=== PATIENT | female | born 1990 | race Caucasian/White ===

== ENCOUNTER → 2017-04-15 | Outpatient (CLI) | payer OTHER ==
[~2017-04-15] MED LIST: ACYC800 PO; ALBU90OI INH; ALBU90OI61 INH; ASPI81EC PO; AZIT250 PO; BUPR150ER PO; BUPRENORPHIN-N1 EACH SL; BUPRENORPHINE HC2 MG SL; BUSP10 PO; Bactrim Ds Tab1 EACH PO; CALPHO600 PO; CLON.1 PO; CYCL10 PO; Cleocin HCl300 MG PO; DIPH50 PO; DOXY100 PO; Esgic Tablet1 EACH PO; FLUO10 PO; GABA300 PO; GUAI600T33 PO; HYDACE5 PO; HYDHCL25 PO; HYDPAM50 PO; IBUP600 PO; IBUP800 PO; Inderal40 MG PO; KETO10 PO; METPRE4DP PO; MULVITMINE PO; NAPR500 PO; NICO21TP; NITR100CA PO; Naprosyn500 MG PO; ONDA4ODT MM; OXYACE5T PO; PHENA200 PO; PROM25 PO; Percocet 5-3251 EACH PO; QUET200 PO; QUET25 PO; RXPROM25 PO; RXSULTRIDS PO; SULTRIDS PO; Seroquel50 MG PO; Verotin-Gr Cap1 EACH; Zithromax250 MG PO; buspar
[2017-04-15 19:02] LABS: U Amphetamine Screen DETECTED; U Barbituate Screen Not Detected; U Benzodiazapine Screen Not Detected; U Buprenorphine Screen DETECTED; U Cannabinoids Screen Not Detected; U Cocaine Screen Not Detected; U Methadone Screen Not Detected; U Methamphetamine Screen DETECTED; U Opiates Screen Not Detected; U Oxycodone Screen Not Detected; U Phencyclidine Screen Not Detected; U Propoxyphene Screen Not Detected
[2017-04-17 14:26] LABS: MDA Not Detected (NOTDET); MDEA Not Detected (NOTDET); MDMA Not Detected (NOTDET)
[2017-04-17 16:26] LABS: Norbuprenorphine GCMS 417 ng/mL (NOTDET)
== END | disposition home or self-care (01) ==
LOC: LAB 12:29
PROVIDERS: Obstetrics & Gynecology
DX: O99.320 Drug use complicating pregnancy, unspecified trimester (principal); F11.10 Opioid abuse, uncomplicated
CPT/HCPCS: G0480

== ENCOUNTER → 2017-04-25 | Outpatient (CLI) | payer OTHER ==
[2017-04-25 13:25] LABS: U Amphetamine Screen DETECTED; U Barbituate Screen Not Detected; U Benzodiazapine Screen Not Detected; U Buprenorphine Screen DETECTED; U Cannabinoids Screen Not Detected; U Cocaine Screen Not Detected; U Methadone Screen Not Detected; U Methamphetamine Screen DETECTED; U Opiates Screen Not Detected; U Oxycodone Screen Not Detected; U Phencyclidine Screen Not Detected; U Propoxyphene Screen Not Detected
[2017-04-26 22:30] LABS: Norbuprenorphine GCMS >500 ng/mL (NOTDET)
[2017-04-27 12:34] LABS: MDA Not Detected (NOTDET); MDEA Not Detected (NOTDET); MDMA Not Detected (NOTDET)
== END | disposition home or self-care (01) ==
LOC: LAB 11:14
PROVIDERS: Obstetrics & Gynecology
DX: O99.320 Drug use complicating pregnancy, unspecified trimester (principal); F11.10 Opioid abuse, uncomplicated
CPT/HCPCS: G0480

== ENCOUNTER → 2017-08-07 | Outpatient (CLI) | payer OTHER ==
[~2017-08-07] MED LIST changes: -BUPRENORPHIN-N1 EACH SL; -Verotin-Gr Cap1 EACH
[2017-08-07 20:48] LABS: Candida species (DNA Probe) Negative (NEGATIVE); G. vaginalis (DNA Probe) Negative (NEGATIVE); T. vaginalis (DNA Probe) Negative (NEGATIVE)
== END | disposition home or self-care (01) ==
LOC: LAB 15:58 → LAB SHORT 15:58
PROVIDERS: Obstetrics & Gynecology
DX: N89.8 Other specified noninflammatory disorders of vagina (principal)
CPT/HCPCS: 87480; 87510; 87660

== ENCOUNTER → 2017-09-25 | Outpatient (CLI) | payer OTHER ==
[2017-09-26 09:15] LABS: Candida species (DNA Probe) Positive (NEGATIVE); G. vaginalis (DNA Probe) Positive (NEGATIVE); T. vaginalis (DNA Probe) Negative (NEGATIVE)
== END | disposition home or self-care (01) ==
LOC: LAB 16:50 → LAB SHORT 16:50
PROVIDERS: Obstetrics & Gynecology
DX: O23.599 Infection of other part of genital tract in pregnancy, unspecified trimester (principal)
CPT/HCPCS: 87081; 87480; 87510; 87653; 87660

== ENCOUNTER 2017-10-11 22:49 | Inpatient (IN) | payer OTHER ==
[~2017-10-11] VITALS: Ht 180.3 cm; Wt 72.6 kg
[2017-10-12] MEDS ORDERED: Verotin-Gr Cap1 EACH (01:18)
[2017-10-12] MEDS ORDERED: BUPRENORPHIN-N1 EACH SL (01:19)
[2017-10-12 07:14] LABS: BASOPHILS ABSOLUTE AUTO 0.03 K/mm3 (0.00-0.23); BASOPHILS PERCENT AUTO 0 % (0-2); EOSINOPHILS ABSOLUTE AUTO 0.04 K/mm3 (0.00-0.68); EOSINOPHILS PERCENT AUTO 0 % (0-6); Hematocrit 31.3 % (33.0-51.0); Hemoglobin 10.6 g/dL (11.5-16.0); IMMATURE GRAN ABSOLUTE AUTO 0.12 K/mm3 (0.00-0.10); IMMATURE GRAN PERCENT AUTO 1 % (0-1); LYMPHOCYTES ABSOLUTE AUTO 2.85 K/mm3 (0.84-5.20); LYMPHOCYTES PERCENT AUTO 17 % (21-46); MONOCYTES ABSOLUTE AUTO 0.99 K/mm3 (0.16-1.47); MONOCYTES PERCENT AUTO 6 % (4-13); Mean Corpuscular HGB 31.2 pg (26.0-34.0); Mean Corpuscular HGB Conc 33.9 g/dL (31.5-36.5); Mean Corpuscular Volume 92 fL (80-100); Mean Platelet Volume 11.5 fL (9.1-12.4); NEUTROPHILS ABSOLUTE AUTO 12.88 K/mm3 (1.96-9.15); NEUTROPHILS PERCENT AUTO 76 % (41-73); Platelet Count 127 K/mm3 (150-400); RDW Coefficient Variation 12.9 % (11.7-14.2); RDW Standard Deviation 43.3 fL (35.1-46.3); White Blood Cell Count 16.91 K/mm3 (4.00-11.30)
[2017-10-13 05:40] LABS: BASOPHILS ABSOLUTE AUTO 0.03 K/mm3 (0.00-0.23); BASOPHILS PERCENT AUTO 0 % (0-2); EOSINOPHILS ABSOLUTE AUTO 0.12 K/mm3 (0.00-0.68); EOSINOPHILS PERCENT AUTO 1 % (0-6); Hematocrit 29.6 % (33.0-51.0); Hemoglobin 10.3 g/dL (11.5-16.0); IMMATURE GRAN ABSOLUTE AUTO 0.08 K/mm3 (0.00-0.10); IMMATURE GRAN PERCENT AUTO 1 % (0-1); LYMPHOCYTES ABSOLUTE AUTO 3.49 K/mm3 (0.84-5.20); LYMPHOCYTES PERCENT AUTO 30 % (21-46); MONOCYTES ABSOLUTE AUTO 0.68 K/mm3 (0.16-1.47); MONOCYTES PERCENT AUTO 6 % (4-13); Mean Corpuscular HGB 32.1 pg (26.0-34.0); Mean Corpuscular HGB Conc 34.8 g/dL (31.5-36.5); Mean Corpuscular Volume 92 fL (80-100); Mean Platelet Volume 10.7 fL (9.1-12.4); NEUTROPHILS ABSOLUTE AUTO 7.39 K/mm3 (1.96-9.15); NEUTROPHILS PERCENT AUTO 63 % (41-73); Platelet Count 147 K/mm3 (150-400); RDW Coefficient Variation 13.2 % (11.7-14.2); Red Blood Cell Count 3.21 M/mm3 (3.80-5.20); White Blood Cell Count 11.79 K/mm3 (4.00-11.30)
[2017-10-13 05:59] LABS: Alanine Aminotransfer (ALT/SGP 45 U/L (12-78); Albumin, Blood 2.3 g/dL (3.4-5.0); Albumin/Globulin Ratio 0.7 (0.8-1.8); Alk Phos 108 U/L (50-136); Anion Gap 7 mmol/L (6-16); Aspartate Aminotrans (AST/SGOT 35 U/L (12-37); Bilirubin, Total 0.2 mg/dL (0.1-1.0); Blood Urea Nitrogen 13 mg/dL (8-24); Bun/Creatinine Ratio 19.8 (12.0-20.0); CO2, Blood 23 mmol/L (21-32); Chloride, Blood 112 mmol/L (98-108); Creatinine, Blood 0.66 mg/dL (0.40-1.00); Globulin, Blood 3.5 g/dL (2.2-4.0); Glomerular Filtration Rate >60 (60-); Glucose, Blood 75 mg/dL (70-99); Potassium, Blood 4.6 mmol/L (3.5-5.5); Sodium, Blood 142 mmol/L (136-145); Total Protein, Blood 5.8 g/dL (6.4-8.2)
== END 2017-10-13 21:45 | disposition home or self-care (01) | DRG 774 ==
LOC: BC 22:49
PROVIDERS: Obstetrics & Gynecology
PROC: 10E0XZZ Delivery of Products of Conception, External Approach (ICD-10-PCS; principal; 2017-10-11)
DX: O62.3 Precipitate labor (principal); O98.42 Viral hepatitis complicating childbirth; O99.324 Drug use complicating childbirth; F15.20 Other stimulant dependence, uncomplicated; Z3A.40 40 weeks gestation of pregnancy; Z37.0 Single live birth; B19.20 Unspecified viral hepatitis C without hepatic coma
CPT/HCPCS: 36415; 59414; 80053; 85025; J1885

== ENCOUNTER → 2018-03-25 | Outpatient (CLI) | payer OTHER ==
[~2018-03-25] MED LIST changes: +BUPRENORPHIN-N1 EACH SL; +Verotin-Gr Cap1 EACH
== END ==
LOC: LAB 14:16 → LAB SRC 14:16 → LAB SHORT 14:16
DX: Z51.81 Encounter for therapeutic drug level monitoring (principal); F11.221 Opioid dependence with intoxication delirium; Z79.899 Other long term (current) drug therapy
CPT/HCPCS: G0480

== ENCOUNTER → 2018-12-05 | Outpatient (CLI) | payer OTHER ==
[2018-12-08 14:06] LABS: CHLAMYDIA TRACHOMATIS, NAA Negative (Negative); NEISSERIA GONORRHOEAE, NAA Negative (Negative)
== END | disposition home or self-care (01) ==
LOC: LAB EV 18:56 → LAB SHORT 18:56
PROVIDERS: Internal Medicine
DX: Z72.51 High risk heterosexual behavior (principal)
CPT/HCPCS: 87491; 87591

== ENCOUNTER 2019-01-14 11:48 | Emergency (ER) | payer OTHER ==
[~2019-01-14] VITALS: Ht 180.3 cm; Wt 65.8 kg
== END 2019-01-14 15:05 | disposition left against medical advice (07) ==
LOC: ER 11:48
DX: Z53.21 Procedure and treatment not carried out due to patient leaving prior to being seen by health care provider (principal)

== ENCOUNTER → 2019-01-29 | Outpatient (CLI) | payer OTHER ==
[2019-01-30 14:38] LABS: Candida species (DNA Probe) Positive (NEGATIVE); G. vaginalis (DNA Probe) Negative (NEGATIVE); T. vaginalis (DNA Probe) Positive (NEGATIVE)
[2019-02-01 07:06] LABS: CHLAMYDIA TRACHOMATIS, NAA Negative (Negative); NEISSERIA GONORRHOEAE, NAA Positive (Negative)
== END ==
LOC: LAB 16:36 → LAB SHORT 16:36
PROVIDERS: Registered Nurse Community Health
DX: N89.8 Other specified noninflammatory disorders of vagina (principal); Z20.2 Contact with and (suspected) exposure to infections with a predominantly sexual mode of transmission
CPT/HCPCS: 87480; 87491; 87510; 87591; 87660

== ENCOUNTER 2019-04-11 17:36 | Emergency (ER) | payer OTHER ==
[~2019-04-11] VITALS: Ht 180.3 cm; Wt 65.8 kg
[2019-04-11 18:01] LABS: Source, Urine Clean Catch
[2019-04-11 18:09] LABS: Bilirubin, Urine Neg (Neg); Blood, Urine 4+ (Neg); Glucose Qualitative, Urine Neg (Neg); Ketones, Urine Neg (Neg); Leukocyte Esterase, Urine 2+ (Neg); Nitrite, Urine Neg (Neg); Protein, Urine 2+ (Neg); Specific Gravity, Urine 1.025 (1.003-1.022); Urobilinogen, Urine NORM (Normal)
[2019-04-11] MEDS ORDERED: METH10 PO (18:20)
[2019-04-11] MEDS ORDERED: QUET200 PO (18:20)
[2019-04-11] MEDS ORDERED: GABA100 PO (18:20)
[2019-04-11 18:29] LABS: Appearance, Urine Hazy (Clear); Bacteria Many /hpf; Color, Urine Yellow (P-Yellow); Mucus Light (0-Heavy); Squamous Epithelial Cells Mod /hpf (Few)
[2019-04-11] MEDS ORDERED: CEPH500 PO (18:42)
== END 2019-04-11 18:57 | disposition home or self-care (01) ==
LOC: ER 17:36
PROVIDERS: Physician Assistant
DX: N39.0 Urinary tract infection, site not specified (principal); L70.9 Acne, unspecified; L02.91 Cutaneous abscess, unspecified; Z88.0 Allergy status to penicillin; Z88.5 Allergy status to narcotic agent; Z91.040 Latex allergy status; Z91.013 Allergy to seafood; Z79.899 Other long term (current) drug therapy; F32.9 Major depressive disorder, single episode, unspecified; F17.210 Nicotine dependence, cigarettes, uncomplicated
CPT/HCPCS: 81001; 81025; 87086; 99283; A9270-GY

== ENCOUNTER 2019-07-17 11:59 | Emergency (ER) | payer OTHER ==
[~2019-07-17] VITALS: Ht 180.3 cm; Wt 74.8 kg
[~2019-07-17 11:59] MED LIST changes: +CEPH500 PO; +GABA100 PO; +METH10 PO
[2019-07-17] MEDS ORDERED: Vistaril50 MG PO (12:35)
[2019-07-17] MEDS ORDERED: MUPIROCIN1 GM TOP (12:35)
[2019-07-17 16:00] LABS: Source, Urine Clean Catch
[2019-07-17 16:07] LABS: Bilirubin, Urine Neg (Neg); Blood, Urine Neg (Neg); Glucose Qualitative, Urine Neg (Neg); Ketones, Urine 2+ (Neg); Leukocyte Esterase, Urine Neg (Neg); Nitrite, Urine Neg (Neg); Protein, Urine Neg (Neg); Urobilinogen, Urine NORM (Normal)
[2019-07-17 16:16] LABS: Appearance, Urine Clear (Clear); Color, Urine Yellow (P-Yellow)
[2019-07-17] MEDS ORDERED: MOBIC15 MG PO (16:33)
== END 2019-07-17 16:50 | disposition home or self-care (01) ==
LOC: ER 11:59
PROVIDERS: Physician Assistant
DX: J34.0 Abscess, furuncle and carbuncle of nose (principal); R10.9 Unspecified abdominal pain; F41.0 Panic disorder [episodic paroxysmal anxiety]; M06.9 Rheumatoid arthritis, unspecified; Z76.0 Encounter for issue of repeat prescription; F31.9 Bipolar disorder, unspecified; Z88.0 Allergy status to penicillin; Z91.013 Allergy to seafood; Z91.040 Latex allergy status; Z88.5 Allergy status to narcotic agent; F17.210 Nicotine dependence, cigarettes, uncomplicated
CPT/HCPCS: 81003; 81025; 99284

== ENCOUNTER → 2019-08-10 | Outpatient (CLI) | payer OTHER ==
[~2019-08-10] MED LIST changes: +MOBIC15 MG PO; +MUPIROCIN1 GM TOP; +PROP10 PO; +Vistaril50 MG PO
== END | disposition home or self-care (01) ==
LOC: LAB SHORT 15:10 → LAB EV 15:10
DX: N39.0 Urinary tract infection, site not specified (principal)
CPT/HCPCS: 87077; 87086; 87186

== ENCOUNTER → 2022-06-27 | Outpatient (CLI) | payer OTHER | END | disposition home or self-care (01) | LOC: LAB SHORT 17:08 → LAB 17:08 | DX: R30.0 Dysuria (principal); R39.15 Urgency of urination | CPT/HCPCS: 87086 ==

== ENCOUNTER → 2022-07-10 | Outpatient (CLI) | payer OTHER ==
[2022-07-11 10:46] LABS: Candida species (DNA Probe) Negative (NEGATIVE); G. vaginalis (DNA Probe) Negative (NEGATIVE); T. vaginalis (DNA Probe) Negative (NEGATIVE)
== END | disposition home or self-care (01) ==
LOC: LAB SHORT 17:38 → LAB 17:38
PROVIDERS: Nurse Practitioner Family
DX: R30.0 Dysuria (principal)
CPT/HCPCS: 87086; 87480; 87510; 87660

== ENCOUNTER 2023-02-15 01:06 | Emergency (ER) | payer OTHER ==
[~2023-02-15] VITALS: Ht 177.8 cm; Wt 78.0 kg
[2023-02-15 02:17] LABS: BASOPHILS ABSOLUTE AUTO 0.02 K/mm3 (0.00-0.23); BASOPHILS PERCENT AUTO 0 % (0-2); EOSINOPHILS ABSOLUTE AUTO 0.13 K/mm3 (0.00-0.68); EOSINOPHILS PERCENT AUTO 2 % (0-6); Hematocrit 34.4 % (33.0-51.0); Hemoglobin 11.6 g/dL (11.5-16.0); IMMATURE GRAN ABSOLUTE AUTO 0.01 K/mm3 (0.00-0.10); IMMATURE GRAN PERCENT AUTO 0 % (0-1); LYMPHOCYTES ABSOLUTE AUTO 1.28 K/mm3 (0.84-5.20); LYMPHOCYTES PERCENT AUTO 23 % (21-46); MONOCYTES ABSOLUTE AUTO 0.29 K/mm3 (0.16-1.47); MONOCYTES PERCENT AUTO 5 % (4-13); Mean Corpuscular HGB 29.6 pg (26.0-34.0); Mean Corpuscular HGB Conc 33.7 g/dL (31.5-36.5); Mean Corpuscular Volume 88 fL (80-100); Mean Platelet Volume 9.7 fL (9.1-12.4); NEUTROPHILS ABSOLUTE AUTO 3.94 K/mm3 (1.96-9.15); NEUTROPHILS PERCENT AUTO 69 % (41-73); Platelet Count 224 K/mm3 (150-400); RDW Standard Deviation 38.6 fL (35.1-46.3); Red Blood Cell Count 3.92 M/mm3 (3.80-5.20); White Blood Cell Count 5.67 K/mm3 (4.00-11.30)
[2023-02-15 02:35] LABS: Albumin/Globulin Ratio 0.9 (0.8-1.8); Bilirubin, Total 0.3 mg/dL (0.1-1.0); Bun/Creatinine Ratio 17.8 (12.0-20.0); Creatinine, Blood 0.73 mg/dL (0.40-1.00); Globulin, Blood 3.2 g/dL (2.2-4.0); Potassium, Blood 4.2 mmol/L (3.5-5.5); Total Protein, Blood 6.2 g/dL (6.4-8.2)
[2023-02-15 03:01] LABS: Source, Urine Clean Catch
[2023-02-15 03:10] LABS: Bilirubin, Urine Neg (Neg); Blood, Urine Neg (Neg); Glucose Qualitative, Urine Neg (Neg); Ketones, Urine Neg (Neg); Leukocyte Esterase, Urine 1+ (Neg); Nitrite, Urine Neg (Neg); Protein, Urine 1+ (Neg); Urobilinogen, Urine NORM (Normal)
[2023-02-15 03:45] LABS: Appearance, Urine Hazy (Clear); Bacteria Mod /hpf; Color, Urine Yellow (P-Yellow); Red Blood Cells, Urine 0-2 /hpf (0-2); Squamous Epithelial Cells Mod /hpf (Few)
[2023-02-15 06:30] VITALS: BP 103/57
[2023-02-15] MEDS ORDERED: CEPH500 PO (07:01)
== END 2023-02-15 07:13 | disposition home or self-care (01) ==
LOC: ER 01:06
PROVIDERS: Emergency Medicine
DX: N39.0 Urinary tract infection, site not specified (principal); E86.0 Dehydration; K59.00 Constipation, unspecified; Z88.0 Allergy status to penicillin; Z88.5 Allergy status to narcotic agent; Z91.040 Latex allergy status; Z79.899 Other long term (current) drug therapy; F43.10 Post-traumatic stress disorder, unspecified; F17.210 Nicotine dependence, cigarettes, uncomplicated
CPT/HCPCS: 74177; 80053; 81001; 84703; 85025; 87086; 96361; 96365; 96375; 99284-25; J0696; J1630; J1885; J7030; Q9967

== ENCOUNTER → 2023-04-19 | Outpatient (CLI) | payer OTHER | END | disposition home or self-care (01) | LOC: LAB SHORT 12:17 → LAB 12:17 | DX: R82.90 Unspecified abnormal findings in urine (principal); Z20.2 Contact with and (suspected) exposure to infections with a predominantly sexual mode of transmission | CPT/HCPCS: 87086; 87480; 87491; 87510; 87591; 87660 ==

== ENCOUNTER → 2023-04-19 | Outpatient (CLI) | payer OTHER ==
[2023-04-20 12:28] LABS: Candida species (DNA Probe) Negative (NEGATIVE); G. vaginalis (DNA Probe) Positive (NEGATIVE); T. vaginalis (DNA Probe) Negative (NEGATIVE)
[2023-04-22 17:31] LABS: APTIMA MEDIA TYPE Urine; C. TRACHOMATIS BY TMA Negative (Negative); N. GONORRHOEAE BY TMA Negative (Negative); SPECIMEN SOURCE Urine
== END ==
LOC: LAB 12:17 → LAB SHORT 12:17
PROVIDERS: Student in an Organized Health Care Education/Training Program
DX: Z20.2 Contact with and (suspected) exposure to infections with a predominantly sexual mode of transmission (principal)
CPT/HCPCS: 87480; 87491; 87510; 87591; 87660

== ENCOUNTER 2023-04-28 19:29 | Emergency (ER) | payer OTHER ==
[~2023-04-28] VITALS: Ht 180.3 cm; Wt 74.8 kg
[2023-04-28 19:39] VITALS: BP 141/78
[2023-04-28 20:34] LABS: SARS-Cov-2 (COVID-19) PCR, MMC NEGATIVE (NEGATIVE)
[2023-04-28 20:36] LABS: Influenza A Negative (NEGATIVE); Influenza B Negative (NEGATIVE)
== END 2023-04-28 21:14 | disposition home or self-care (01) ==
LOC: ER 19:29
PROVIDERS: Physician Assistant
DX: J06.9 Acute upper respiratory infection, unspecified (principal); F17.210 Nicotine dependence, cigarettes, uncomplicated; F90.9 Attention-deficit hyperactivity disorder, unspecified type; F43.10 Post-traumatic stress disorder, unspecified; F60.3 Borderline personality disorder; Z79.899 Other long term (current) drug therapy; Z88.0 Allergy status to penicillin; Z88.5 Allergy status to narcotic agent; Z91.040 Latex allergy status; Z91.013 Allergy to seafood
CPT/HCPCS: 87804; 87807; 96372; 99284-25; A9270; J1885; U0002

== ENCOUNTER → 2023-05-23 | Outpatient (CLI) | payer OTHER ==
[2023-06-01 08:47] LABS: HPV SOURCE Vaginal
== END ==
LOC: LAB 17:14 → LAB SHORT 17:14
PROVIDERS: Registered Nurse
DX: Z01.419 Encounter for gynecological examination (general) (routine) without abnormal findings (principal)
CPT/HCPCS: G0123

== ENCOUNTER 2023-10-04 03:54 | Emergency (ER) | payer OTHER ==
[~2023-10-04] VITALS: Ht 177.8 cm; Wt 74.8 kg
[2023-10-04 04:08] VITALS: BP 131/85
[2023-10-04] MEDS ORDERED: Dexamethasone Sod Phos 10 MG/ML 1ML VIAL IM ONE (06:35)
== END 2023-10-04 06:51 | disposition home or self-care (01) ==
LOC: ER 03:54
DX: L23.7 Allergic contact dermatitis due to plants, except food (principal); F43.10 Post-traumatic stress disorder, unspecified; F41.9 Anxiety disorder, unspecified; F17.210 Nicotine dependence, cigarettes, uncomplicated; Z79.899 Other long term (current) drug therapy; Z88.0 Allergy status to penicillin; Z88.5 Allergy status to narcotic agent; Z91.040 Latex allergy status; Z91.013 Allergy to seafood
CPT/HCPCS: 96372; 99282-25; J1100

== ENCOUNTER → 2023-10-22 | Outpatient (CLI) | payer OTHER ==
[2023-10-22 16:49] LABS: Source, Urine Clean Catch
[2023-10-22 18:43] LABS: Appearance, Urine Clear (Clear); Bilirubin, Urine Neg (Neg); Blood, Urine 1+ (Neg); Color, Urine Yellow (P-Yellow); Glucose Qualitative, Urine Neg (Neg); Ketones, Urine Neg (Neg); Leukocyte Esterase, Urine Neg (Neg); Nitrite, Urine Neg (Neg); Protein, Urine Neg (Neg); Specific Gravity, Urine 1.025 (1.003-1.022); Urobilinogen, Urine NORM (Normal)
[2023-10-22 18:53] LABS: Bacteria Few /hpf; Squamous Epithelial Cells Few /hpf (Few); White Blood Cells, Urine 0-2 /hpf (0-5)
[2023-10-22 18:56] LABS: U Amphetamine Screen DETECTED; U Barbituate Screen Not Detected; U Benzodiazapine Screen Not Detected; U Buprenorphine Screen DETECTED; U Cannabinoids Screen Not Detected; U Cocaine Screen Not Detected; U Methadone Screen Not Detected; U Methamphetamine Screen DETECTED; U Opiates Screen Not Detected; U Oxycodone Screen Not Detected; U Phencyclidine Screen Not Detected
[2023-10-26 09:59] LABS: AMPHETAMINE,URN,QUANT 1397 ng/mL; MDA,URN,QUANT <200 ng/mL; MDEA,URN,QUANT <200 ng/mL; MDMA,URN,QUANT <200 ng/mL; METHAMPHETAMINE,URN,QUANT 1540 ng/mL; PHENTERMINE,URN,QUANT <200 ng/mL
[2023-10-26 14:08] LABS: BUPRENORPHINE GLUC,URN,QUANT 293 ng/mL; BUPRENORPHINE,URN,QUANT 11 ng/mL; NALOXONE,URN,QUANT <100 ng/mL; NORBUPRENORPHINE GLUC,UR,QUANT 437 ng/mL; NORBUPRENORPHINE,URN,QUANT 492 ng/mL
== END ==
LOC: LAB SHORT 16:46 → LAB 16:46
PROVIDERS: Obstetrics & Gynecology
DX: Z34.81 Encounter for supervision of other normal pregnancy, first trimester (principal)
CPT/HCPCS: 81001; 87086; G0480

== ENCOUNTER 2024-03-29 00:27 | Emergency (ER) | payer OTHER ==
[~2024-03-29] VITALS: Ht 172.7 cm; Wt 74.8 kg
[2024-03-29 00:41] VITALS: BP 147/97
[2024-03-29] MEDS ORDERED: Amoxicillin 875 MG Tab PO ONE (01:15)
[2024-03-29] MEDS ORDERED: Amoxicillin875 MG PO (01:16)
== END 2024-03-29 01:32 | disposition home or self-care (01) ==
LOC: ER 00:27
DX: O99.619 Diseases of the digestive system complicating pregnancy, unspecified trimester (principal); K04.7 Periapical abscess without sinus; F17.210 Nicotine dependence, cigarettes, uncomplicated; Z88.5 Allergy status to narcotic agent; Z91.040 Latex allergy status; Z91.013 Allergy to seafood
CPT/HCPCS: 42000; 99283-25; A9270

== ENCOUNTER 2024-06-05 11:27 | Inpatient (IN) | payer OTHER ==
[2024-06-05] VITALS (25 sets, daily range): BP systolic 124–185; BP diastolic 70–104
[~2024-06-05] VITALS: Ht 180.3 cm; Wt 80.1 kg
[~2024-06-05 11:27] MED LIST changes: +Amoxicillin875 MG PO
[2024-06-05] MEDS ORDERED: Ondansetron HCl 2 MG / ML 2ML Vial IV PRN (11:35)
[2024-06-05] MEDS ORDERED: Acetaminophen 500 MG Tab PO PRN (11:35)
[2024-06-05] MEDS ORDERED: OXYTOCIN/RINGER'S LACTATE 500 ML IV PRN (11:35)
[2024-06-05] MEDS ORDERED: Oxytocin 10 Unit / ML Vial IM PRN (11:35)
[2024-06-05] MEDS ORDERED: Calcium Carbonate 500 MG Tab Chew PO PRN (11:35)
[2024-06-05] MEDS ORDERED: Methylergonovine Maleate 0.2MG / ML 1ML Amp IM PRN (11:35)
[2024-06-05] MEDS ORDERED: Carboprost Tromethamine 250 MCG/ML 1ML Amp IM PRN ×2 (11:35→12:25)
[2024-06-05] MEDS ORDERED: Misoprostol 200 MCG Tab BC PRN (11:35)
[2024-06-05] MEDS ORDERED: Misoprostol 200 MCG Tab PR PRN ×2 (11:35→12:30)
[2024-06-05] MEDS ORDERED: Lactated Ringer's 1,000 ML IV PRN (11:35)
[2024-06-05] MEDS ORDERED: Tranexamic Acid 100 ML IV SCH (11:45)
[2024-06-05] MEDS ORDERED: Ibuprofen 400 MG Tab PO PRN ×2 (12:00→12:25)
[2024-06-05] MEDS ORDERED: Docusate Sodium 100 MG Cap PO PRN (12:25)
[2024-06-05] MEDS ORDERED: Witch Hazel/Glycerin PADS TOP PRN (12:25)
[2024-06-05] MEDS ORDERED: Benzocaine Topical Anesthetic Spray 60GM TOP PRN (12:25)
[2024-06-05] MEDS ORDERED: FLU VACC TS2024-25(6MOS UP)/PF 45 MCG/0.5 ML SYRINGE IM SCH (12:25)
[2024-06-05] MEDS ORDERED: Acetaminophen 325 MG TABLET PO PRN (12:25)
[2024-06-05] MEDS ORDERED: NIFEdipine 10 MG Cap ONE (12:25)
[2024-06-05] MEDS ORDERED: Ketorolac Tromethamine 30mg Vial IV PRN (12:25)
[2024-06-05] MEDS ORDERED: Lactated Ringer's 1,000 ML IV SCH ×2 (12:30→16:00)
[2024-06-05] MEDS ORDERED: Oxytocin 10 Unit / ML Vial IM ONE (12:30)
[2024-06-05] MEDS ORDERED: PRENATAL TABLE1 EAC2 PO (12:32)
[2024-06-05 13:10] LABS: BASOPHILS ABSOLUTE AUTO 0.06 K/mm3 (0.00-0.23); BASOPHILS PERCENT AUTO 1 % (0-2); EOSINOPHILS ABSOLUTE AUTO 0.04 K/mm3 (0.00-0.68); EOSINOPHILS PERCENT AUTO 1 % (0-6); Hematocrit 35.5 % (33.0-51.0); Hemoglobin 11.7 g/dL (11.5-16.0); IMMATURE GRAN ABSOLUTE AUTO 0.18 K/mm3 (0.00-0.10); IMMATURE GRAN PERCENT AUTO 2 % (0-1); LYMPHOCYTES ABSOLUTE AUTO 2.54 K/mm3 (0.84-5.20); LYMPHOCYTES PERCENT AUTO 30 % (21-46); MONOCYTES ABSOLUTE AUTO 0.38 K/mm3 (0.16-1.47); MONOCYTES PERCENT AUTO 4 % (4-13); Mean Corpuscular HGB 25.1 pg (26.0-34.0); Mean Corpuscular Volume 76 fL (80-100); Mean Platelet Volume 12.5 fL (9.1-12.4); NEUTROPHILS ABSOLUTE AUTO 5.35 K/mm3 (1.96-9.15); NEUTROPHILS PERCENT AUTO 63 % (41-73); Platelet Count 235 K/mm3 (150-400); RDW Coefficient Variation 13.2 % (11.7-14.2); RDW Standard Deviation 35.7 fL (35.1-46.3); Red Blood Cell Count 4.66 M/mm3 (3.80-5.20); White Blood Cell Count 8.55 K/mm3 (4.00-11.30)
--- NOTE | 2024-06-05 13:15 | NUR ---
PT REFUSING FUNDAL MASSAGE AND NOT ALLOWING RN TO MASSAGE Q15MIN. BLEEDING MILD BUT PT COMPLAINING OF FREQUENT CRAMPING. EDUCATED PT ON IMPORTANCE OF FUNDAL MASSAGE AND STILL REFUSING.
[2024-06-05 13:51] LABS: Albumin, Blood 2.2 g/dL (3.4-5.0); Albumin/Globulin Ratio 0.5 (0.8-1.8); Bilirubin, Total 0.4 mg/dL (0.1-1.0); Bun/Creatinine Ratio 23.2 (12.0-20.0); Calcium, Blood 8.2 mg/dL (8.5-10.1); Creatinine, Blood 0.82 mg/dL (0.40-1.00); Globulin, Blood 4.8 g/dL (2.2-4.0); Potassium, Blood 3.9 mmol/L (3.5-5.5)
--- NOTE | 2024-06-05 13:59 | NUR ---
JORGE LARKIN FROM [facility] UNABLE TO GET PIV PLACED. ANOTHER RN FROM [facility] WILL COME DOWN TO DO A POWERGLIDE.
--- NOTE | 2024-06-05 14:14 | NUR ---
JORGE GREGG FROM [facility] HERE TO PLACE A POWERGLIDE IV
[2024-06-05] MEDS ORDERED: Magnesium Sul 4 GM/Water100 ML 100 ML IV ONE ×2 (15:55→16:00)
[2024-06-05] MEDS ORDERED: Labetalol HCL 5 MG/ML 4ML Injection (Single Dose) ONE (15:55)
[2024-06-05] MEDS ORDERED: Magnesium Sulfate 500 ML IV ONE (15:59)
[2024-06-05] MEDS ORDERED: Labetalol HCL 5 MG/ML 4ML Injection (Single Dose) IV ONE (16:00)
[2024-06-05] MEDS ORDERED: Magnesium Sulfate 500 ML IV SCH (16:00)
[2024-06-05] MEDS ORDERED: Calcium Gluconate 0.465 mEq/ml 10 ml Vial IV PRN (16:00)
[2024-06-05] MEDS ORDERED: Labetalol HCL 5 MG/ML 4ML Injection (Single Dose) IV PRN ×2 (16:00)
[2024-06-05] MEDS ORDERED: NIFEdipine 10 MG Cap PO ONE (16:35)
--- NOTE | 2024-06-05 18:14 | NUR ---
LATE ENTRY NOTE: @[address] LANDRUM NOTIFIED HER THAT PT IS NOW HAVING VISION CHANGES AND A PERSISTENT HEADACHE AFTER IBUPROFEN AND TYLENOL AND MOST RECENT BLOOD PRESSURE SPIKED TO 176/97 WITH A PULSE OF 83. ORDERS TO START LABETOLOL PROTOCOL AND MAGNESIUM WITH A 4GM BOLUS AND 2GM/HR MAINTENANCE MAG.
--- NOTE | 2024-06-05 18:21 | NUR ---
ATTEMPTED TO GET PT TO URINATE AT 1530 AND PT WAS UNABLE TO VOID. PT WAS WEAK DUE TO VISION CHANGES AND WAS EDUCATED ON NOT GETTING UP ON HER OWN. PT VERBALIZES THAT SHE WILL CALL TO GET UP TO BATHROOM AGAIN.
[2024-06-05] MEDS ORDERED: Oxytocin 10 Unit / ML Vial XX ONE (18:22)
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
[2024-06-06] VITALS (42 sets, daily range): BP systolic 127–175; BP diastolic 74–106
--- NOTE | 2024-06-06 02:55 | NUR ---
AT 1999 PT BP ELEVATED IN THE SEVERE RANGE. PT IS MEDICATED WITHLABATALOL AND TYLENOL FOR A HEADACHE. NB IS FED AT 2014. PT IS NODDING OFF WHILE HOLDING NB AND THIS RN IS SPEAKING WITH HER ABOUT PUTTING THE NB IN THE CRIB. THIS RN PLACES BABY IN CRIB. 2029 PT REPORTS THE NEED TO URINATE. pT IS ASSISTED TO THE BATHROOM. AT THE DOOR TO THE BR, PT C/O "DAVID" VISION AND A THROBBING HEADACHE. PT IS CAT ON TOILET. 900 CC OUTPUT. PT IS THEN WHEELED BACK TO BED. DR. LANDRUM BEDSIDE AT 2044 TO CHECKIN. SUGGESTS TORADOL FOR THE HEADACHE. PRESSURES ARE NO LONGER IN A SEVERE RANGE. 2329 THIS RN CHECKS ON PT AND BABY AND FINDS MULTIPLE BULY BLANKETS IN THE CRIB WITH BABY WELL A LARGE STUFFED ANIMAL. THIS RN RE-EDUCATED ON SAFE SLEEPING PRACTICES TO PT AND PTS MOM. THIS RN CHECKS DIAPER WHILE DOING BEDSIDE CBG. THE DIAPER IS VERY FULL WITH URINE. PT STATES THAT NOBODY HAS CHECKED THE NBS DIAPER. THIS RN INFORMED HER THAT SHE IS WELCOME TO DO THAT SHE SEES FIT OR AT FEED TIMES. pTS MOTHER HAS DONE ALL THE NB CARE SINCE 2029. PT CONT. TO NOD OFF BUT WAKES EASILY TO VERBAL STIM. WHEN PT IS AWAKE, SHE REPORTS BEING STARVING AND IS BROUGHT FOOD. PT FALLS ASLEEP SHORTLY AFTER. AFTER 2330 FEED, PT HOLDS BABY FOR A FEW MIN BUT STARTS TO NOD OFF AGAIN. PTS MOTHER TAKES BABY. PTS MOM DOES 0130 FEED, BURP AND DIAPER CARE. PT EATING, THEN GOES TO SLEEP. 244, THIS RN GOES IN FOR VITAL AND BABYS BLANET IS LOOSLY WRAPPED AROUND HER, COVERING EHR FACE. BLANKET IS FIXED BY THIS RN. NB IS SLEEPING WELL AND BREATHING NORMALLY.
[2024-06-06] MEDS ORDERED: Labetalol HCL 100 MG TAB PO SCH ×2 (03:55→09:00)
--- NOTE | 2024-06-06 04:39 | NUR ---
pt mother continues to provide all care as pt sleeps. pt mother offereed for pt to feed at 0330, pt declined. pt nods off while sitting up, sleeps, but wakes to verbal stim.
--- NOTE | 2024-06-06 06:42 | NUR ---
At 0500, pt was asked if she felt like she needed to use the bathroom. Blood oressures remained elevated and this RN wanted to be sure that blood loss or need to urinate wasnt the cause. Fundal rub was done, fundus was firm, below unbilicus and slightly to the L. Pt declied the need to use the BR. at 0610 this rn left the room to warn milk for the . At 0615, pt call light went off. This RN responded and found the pt off the monitors and SCDs, standing at the edge of the bed. pt stated that she urinated the bed and needed to pee terrribly. Pt ambulated to the BR, bed was cleaned. pt was unable to urinate on the toilet. bed was saturated with urine. pt was brought back to bed c/o a headache.
[2024-06-06] MEDS ORDERED: NIFEdipine 30 MG TabCR PO SCH ×2 (08:00→21:00)
[2024-06-06] MEDS ORDERED: Prenatal Vit/FE Fumarate/FA 1 Tab PO SCH (09:00)
[2024-06-06] MEDS ORDERED: Promethazine HCl 25 MG Tab PO PRN (09:20)
[2024-06-06 12:37] LABS: U Amphetamine Screen Not Detected; U Barbituate Screen Not Detected; U Benzodiazapine Screen Not Detected; U Buprenorphine Screen Not Detected; U Cannabinoids Screen Not Detected; U Cocaine Screen Not Detected; U Methadone Screen Not Detected; U Methamphetamine Screen DETECTED; U Opiates Screen Not Detected; U Oxycodone Screen Not Detected; U Phencyclidine Screen Not Detected
--- NOTE | 2024-06-06 13:17 | NUR ---
[facility]PS HOTLINE CALLED. NOTIFIED OF ALL CONCERNS LISTED IN PREVIOUS NOTES. SPOKE WITH KEVIN CALHOUN. SCREENING ID #[id number]. THEY ARE OPENING A CASE AND WILL BE HERE WITHIN 24 HOURS. CALLED AT 1235 ON 06/06/24.
--- NOTE | 2024-06-06 18:59 | NUR ---
THROUGHOUT THE DAY PT HAS HAD VISITORS. PT WAS HOLDING BABY WHEN ENTERING ROOM AT START OF SHIFT. PT AND PT VISITORS HAVE DONE ALL CARE FOR BABY. WHEN TEACHING ABOUT SAFE SLEEP HABITS PATIENS MOM PROMPTLY REMOVED SOFT FUZZY BLANKET FOLED IN CRIB. PATIENT KNOWLEDGABLE ABOUT FORMULA PREPARATION. PT BLOOD PRESSURES WERE IN SEVERE RANGE DURING SHIFT AND TREATED IF REPEAT WAS ALSO IN SEVERE RANGE. DR. LANDRUM WAS CALLED NOTIFED OF SEVERE RANGE PRESSURES. MAG WAS TURNED OFF AT 1610. CPS MET WITH PATIENT AT END OF SHIFT AND WILL BE BACK ON 06/07/24 WITH WRITTEN PLAN. SECURITY NOTIFED CPS WAS ON UNIT AND WAITED AT NURSES STATION UNTIL CPS LEFT.
[2024-06-07 00:08] VITALS: BP 129/74
[2024-06-07 02:10] VITALS: BP 121/69
--- NOTE | 2024-06-07 07:46 | NUR ---
have been in pt room at 0715 and 0745 this morning, pt is sleeping doesnt acknowledge rn talking to her, she is 1/2 alsleep/awake. family frient is holding baby when asked family friend about baby feeding, she reports should be now and that was at 0715, when i went in at 0745 baby was still held by family friend and held
[2024-06-07 08:18] VITALS: BP 124/83
--- NOTE | 2024-06-07 09:08 | NUR ---
dr amaya discharging pt to boarder status if baby is unable to go home, she instructed pt to make an appiontment this week for the office to be seen and to have someone pick pack worker her meds at [facility],that they were sent over yesterday. pt verbalized understanding pt c/o heachache to top of head that radiates to her neck, heat pad given, encouraged for her to shower first to help loosen up muscles then use heat pack, gave tylenol for the pain
[2024-06-07] MEDS ORDERED: IBUP800 PO (09:22)
[2024-06-07] MEDS ORDERED: NIFE30ER PO (09:22)
[2024-06-07] MEDS ORDERED: LABE200 PO (09:22)
[2024-06-07 11:35] VITALS: BP 141/85
--- NOTE | 2024-06-07 12:00 | NUR ---
pt friend left, inocente are here, pt is in the shower, pt still hasnt filled out the cert or ppd assessment
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
[2024-06-07 15:48] LABS: HEPATITIS B SURFACE ANTIGEN Negative (Negative)
[2024-06-08 09:18] LABS: HIV 1,2 COMBO ANTIGEN/ANTIBODY Negative (Negative)
[2024-06-08 18:59] LABS: HCV QNT BY NAAT (IU/ML) Not Detected; HCV QNT BY NAAT (LOG IU/ML) Not Detected; HCV QNT BY NAAT INTERP Not Detected (Not Detected)
== END 2024-06-07 14:00 | disposition home or self-care (01) | DRG 806 ==
LOC: OBS 11:27 → BC 11:28 → OBS 11:32 → BC 11:34
PROVIDERS: Obstetrics & Gynecology; ADMIT Advanced Practice Midwife
PROC: 10E0XZZ Delivery of Products of Conception, External Approach (ICD-10-PCS; principal; 2024-06-05)
DX: O99.324 Drug use complicating childbirth (principal); F15.20 Other stimulant dependence, uncomplicated; Z37.0 Single live birth; O98.42 Viral hepatitis complicating childbirth; B19.20 Unspecified viral hepatitis C without hepatic coma; O13.5 Gestational [pregnancy-induced] hypertension without significant proteinuria, complicating the puerperium; Z3A.39 39 weeks gestation of pregnancy; Z88.5 Allergy status to narcotic agent; Z91.013 Allergy to seafood; Z91.040 Latex allergy status
CPT/HCPCS: 36415; 80053; 85025; 86592; 86850; 86900; 86901; 86923; 87340; 87389; 87522; A9270; J1885; J2590; J3475; J7120

== ENCOUNTER 2025-01-30 21:39 | Emergency (ER) | payer OTHER ==
[~2025-01-30] VITALS: Ht 177.8 cm; Wt 72.6 kg
[~2025-01-30 21:39] MED LIST changes: +LABE200 PO; +NIFE30ER PO; +PRENATAL TABLE1 EAC2 PO
[2025-01-30 21:49] VITALS: BP 157/80
[2025-01-30] MEDS ORDERED: AMOCLA875 PO (21:54)
== END 2025-01-30 21:59 | disposition home or self-care (01) ==
LOC: ER 21:39
DX: K08.89 Other specified disorders of teeth and supporting structures (principal); F17.200 Nicotine dependence, unspecified, uncomplicated; Z88.5 Allergy status to narcotic agent; Z91.013 Allergy to seafood; Z91.040 Latex allergy status; Z79.899 Other long term (current) drug therapy
CPT/HCPCS: 99282; A9270

== ENCOUNTER 2025-03-11 12:30 | Emergency (ER) | payer OTHER ==
[~2025-03-11] VITALS: Ht 177.8 cm; Wt 77.1 kg
[~2025-03-11 12:30] MED LIST changes: -COMPAZINE10 MG PO
[2025-03-11 13:38] LABS: BASOPHILS ABSOLUTE AUTO 0.05 K/mm3 (0.00-0.23); BASOPHILS PERCENT AUTO 1 % (0-2); EOSINOPHILS ABSOLUTE AUTO 0.19 K/mm3 (0.00-0.68); EOSINOPHILS PERCENT AUTO 2 % (0-6); Hematocrit 40.8 % (33.0-51.0); Hemoglobin 13.6 g/dL (11.5-16.0); IMMATURE GRAN ABSOLUTE AUTO 0.03 K/mm3 (0.00-0.10); IMMATURE GRAN PERCENT AUTO 0 % (0-1); LYMPHOCYTES ABSOLUTE AUTO 2.81 K/mm3 (0.84-5.20); LYMPHOCYTES PERCENT AUTO 33 % (21-46); MONOCYTES ABSOLUTE AUTO 0.44 K/mm3 (0.16-1.47); MONOCYTES PERCENT AUTO 5 % (4-13); Mean Corpuscular HGB Conc 33.3 g/dL (31.5-36.5); Mean Corpuscular Volume 85 fL (80-100); NEUTROPHILS ABSOLUTE AUTO 5.01 K/mm3 (1.96-9.15); NEUTROPHILS PERCENT AUTO 59 % (41-73); NRBC ABSOLUTE 0.00 K/mm3 (0.00-0.02); NRBC Auto 0.0 /100 WBC (0.0-0.2); Platelet Count 360 K/mm3 (150-400); RDW Coefficient Variation 12.1 % (11.7-14.2); RDW Standard Deviation 38.1 fL (35.1-46.3)
[2025-03-11 14:02] LABS: Source, Urine Clean Catch
[2025-03-11 14:09] LABS: Bilirubin, Urine Neg (Neg); Color, Urine Yellow (P-Yellow); Glucose Qualitative, Urine Neg (Neg); Ketones, Urine Neg (Neg); Leukocyte Esterase, Urine 3+ (Neg); Protein, Urine 1+ (Neg); Specific Gravity, Urine 1.015 (1.003-1.022); Urobilinogen, Urine NORM (Normal)
[2025-03-11 14:23] LABS: Trichomonas Few /hpf
[2025-03-11 14:24] LABS: Alanine Aminotransfer (ALT/SGP 22.0 U/L (12-78); Albumin, Blood 3.9 g/dL (3.4-5.0); Albumin/Globulin Ratio 1.0 (0.8-1.8); Anion Gap 9.0 mmol/L (3-11); Aspartate Aminotrans (AST/SGOT 19.0 U/L (12-37); Beta HCG, Quantitative, Serum 181.0 mIU/mL (0-3); Bilirubin, Total 0.6 mg/dL (0.1-1.0); Blood Urea Nitrogen 13.0 mg/dL (8-24); CO2, Blood 24.0 mmol/L (21-32); Calcium, Blood 8.8 mg/dL (8.5-10.1); Chloride, Blood 106.0 mmol/L (98-108); Creatinine, Blood 0.7 mg/dL (0.40-1.00); Globulin, Blood 4.1 g/dL (2.2-4.0); Glucose, Blood 85.0 mg/dL (70-99); Potassium, Blood 3.8 mmol/L (3.5-5.5); Sodium, Blood 135.0 mmol/L (136-145); Total Protein, Blood 8.0 g/dL (6.4-8.2)
[2025-03-11] MEDS ORDERED: IBUP600 PO (15:33)
[2025-03-11] MEDS ORDERED: COMPAZINE10 MG PO (15:33)
[2025-03-11 15:35] VITALS: BP 136/106
[2025-03-13] MEDS ORDERED: CEPH500 PO (16:10)
== END 2025-03-11 15:35 | disposition home or self-care (01) ==
LOC: ER 12:30
PROVIDERS: Emergency Medicine
DX: O20.9 Hemorrhage in early pregnancy, unspecified (principal); O23.40 Unspecified infection of urinary tract in pregnancy, unspecified trimester; N39.0 Urinary tract infection, site not specified; F17.210 Nicotine dependence, cigarettes, uncomplicated
CPT/HCPCS: 76801; 76817; 80053; 81001; 84702; 85025; 86900; 86901; 87086; 87147; 99284-25

== ENCOUNTER → 2025-03-11 | Outpatient (CLI) | payer OTHER ==
[~2025-03-11] MED LIST changes: +AMOCLA875 PO; +COMPAZINE10 MG PO
== END ==
LOC: LAB SHORT 12:00 → LAB 12:00
DX: R82.90 Unspecified abnormal findings in urine (principal); N93.9 Abnormal uterine and vaginal bleeding, unspecified
CPT/HCPCS: 87086; 87147